=== PATIENT | male | born 1950 | race Caucasian/White ===

== ENCOUNTER → 2019-04-03 | Outpatient (CLI) | payer OTHER ==
[2013-12-04 09:20] VITALS: BP 127/72
[~2019-04-03] MED LIST: ALBU2.5V8 INH; BUSP10TA PO; DIPH25TA64 PO; FINA5TAB4 PO; OXYC-314 PO; TADA20TA PO; TAMS0.4C2 PO
--- NOTE | 2019-04-03 12:26 | NUR ---
PT CANNOT HAVE LABS HERE. MRSA DONE AND COPY OF ORDER GIVEN TO TAKE TO PCP.
== END | disposition home or self-care (01) ==
LOC: SURGPAT 11:11
PROVIDERS: ATTEND Neurological Surgery
DX: Z01.818 Encounter for other preprocedural examination (principal); M47.22 Other spondylosis with radiculopathy, cervical region; Z98.1 Arthrodesis status
CPT/HCPCS: 36415; 87641

== ENCOUNTER 2019-04-13 08:20 | Day surgery (SDC) | payer OTHER ==
--- NOTE | 2019-04-12 17:48 | HP ---
ADMIT DATE: 04/13/2019. PREOPERATIVE HISTORY AND PHYSICAL DATE OF SURGERY: 04/13/2019 HISTORY OF PRESENT ILLNESS: The patient is a pleasant 68-year-old, who has difficulty with neck pain, an intermittent pain which radiates in his right arm along with feelings of numbness and weakness in the right arm. The problem has been present for more than 3 years. I saw him several years ago with similar complaint. He has rested and has limited his activities with no improvement. He says he awakens intermittently at night because of the pain. He has been studied with cervical myelography in the past and more recently with a cervical MRI scan. He did undergo a fusion at C4-C5 and C5-C6 in 2009. There is no problem on the left side. He denies difficulties with balance or gait. He does have a long history of complaints of low back pain. PAST MEDICAL HISTORY: Arthritis, cancer, headaches, head or neck injury, tonsillitis, ulcers, chronic obstructive pulmonary disease, anemia, asthma, osteoporosis, benign prostatic hypertrophy, gastroesophageal reflux disease, hypertension, and low back pain. PAST SURGICAL HISTORY: Right salivary gland in 2011, adenoma removed, anterior cervical discectomy and fusion of C4-C5 and C5-C6 in 04/2010. FAMILY HISTORY: Alzheimer disease, diabetes, coronary artery disease, hypertension, migraine headaches, and spine problems. SOCIAL HISTORY: Retired; ; smokes 2 packs per day and has for 50 years; drinks 6 alcoholic beverages per day. ALLERGIES: No known drug allergies. CURRENT MEDICATIONS: Tamsulosin, Flonase, finasteride, Aleve. REVIEW OF SYSTEMS: A 12-point review of systems was noncontributory except that mentioned above. NEUROSURGERY EXAMINATION: GENERAL APPEARANCE: Alert, pleasant, no acute distress. HEAD: Normocephalic and atraumatic. SKIN: Warm and dry. NECK AND THYROID: Jefi-ak-vwvcwejz tenderness with palpation of posterior cervical region, well-healed anterior incision. MUSCULOSKELETAL: Cervical paraspinal muscle bulk is normal,normal range of motion of the upper extremities bilaterally. EXTREMITIES: No clubbing, cyanosis, or edema. NEUROLOGIC: Alert and oriented x3; normal recent and remote memory; strength 5/5 in bilateral upper and lower extremities. Sensory is intact to light touch in the upper and lower extremities except for decrease in light touch involving the right forearm and hand. Reflexes are trace and symmetric in the upper and lower extremities bilaterally, normal gait. IMAGING: I reviewed a cervical MRI scan. He does have evidence of neural foraminal narrowing on the right at C4-C5 and C5-C6. This does correspond to the right upper extremity. ASSESSMENT/ PLAN: I explained to him again as I did several years ago the problems at C4-C5 and C5-C6 on the right could be associated with his right cervical radicular symptoms. My recommendation is for posterior cervical decompressive surgery at C4-C5 and C5-C6. I discussed with him the surgery and the risks as well as expected postoperative course. He understands and would like to go ahead. We will make the arrangements. BRENT SOLITARIO MD DR: DONTE/wandy JOB#: [id number] / [id number] DANA
[~2019-04-13] VITALS: Ht 172.7 cm; Wt 58.5 kg
[~2019-04-13 08:20] MED LIST changes: +BACITRACIN 50,000 UNIT in IV NORMAL SALINE 1000ML BAG 1,000 ML IRR ONE; +BUPIVACAINE-EPI 0.5%-1:200000 MPF 30 ML VIAL. INJ ONE; +GELATIN SPONGE SIZE 100. ONE; +KETOROLAC 60 MG/2 ML VIAL. ONE; +THROMBIN TOPICAL 20,000 UNIT SPRAY.SYRN KIT TP ONE; +ceFAZolin 2GM PREMIX 2 GM/50 ML BAG IV ONE
[2019-04-13] MEDS ORDERED: AMLO5TAB4 PO (09:21)
[2019-04-13] MEDS ORDERED: ACET500T68 PO (09:25)
[2019-04-13] MEDS ORDERED: IV RINGERS,LACTATED 1000ML 1,000 ML IV SCH ×2 (09:30→13:41)
[2019-04-13] MEDS ORDERED: MIDAZOLAM HCL/PF 2 MG/2 ML VIAL. ONE (09:39)
[2019-04-13] MEDS ORDERED: GLYCOPYRROLATE 1 MG/5 ML VIAL. ONE (09:39)
[2019-04-13] MEDS ORDERED: REMIFENTANIL 2 MG VIAL. IV ONE (09:39)
[2019-04-13] MEDS ORDERED: ROCURONIUM 50 MG/5 ML VIAL. ONE (09:39)
[2019-04-13] MEDS ORDERED: KETOROLAC 30 MG/ML VIAL. ONE (09:40)
[2019-04-13] MEDS ORDERED: DEXAMETHASONE SOD PHOS 20 MG/5 ML VIAL. ONE (09:40)
[2019-04-13] MEDS ORDERED: DESFLURANE > 120 MINUTES IH ONE (09:40)
[2019-04-13] MEDS ORDERED: PHENYLEPHRINE 10 MG/ML VIAL. ONE ×2 (09:40→11:44)
[2019-04-13] MEDS ORDERED: PROPOFOL 20 ML IV ONE (09:40)
[2019-04-13] MEDS ORDERED: PROPOFOL 50 ML IV ONE ×2 (09:40→11:27)
[2019-04-13] MEDS ORDERED: ONDANSETRON PF 4 MG/2 ML VIAL. ONE (09:40)
[2019-04-13] MEDS ORDERED: LIDOCAINE 2% PF 5 ML VIAL. ONE (09:40)
[2019-04-13] MEDS ORDERED: ePHEDrine PF IN SALINE 50 MG/10 ML SYRINGE. IV ONE (11:05)
[2019-04-13] MEDS ORDERED: NEOSTIGMINE METHYLSULFATE 5 MG/5 ML SYRINGE. ONE (12:59)
[2019-04-13] MEDS ORDERED: fentaNYL PF VIAL 100 MCG/2 ML VIAL ONE (13:30)
[2019-04-13] MEDS ORDERED: PROCHLORPERAZINE 10 MG/2 ML VIAL. ONE (13:39)
[2019-04-13] MEDS ORDERED: HYDROmorphone 2 MG/ML VIAL IV PRN (13:45)
[2019-04-13] MEDS ORDERED: MORPHINE SULFATE 2 MG/ML VIAL. IV PRN (13:45)
[2019-04-13] MEDS ORDERED: PROCHLORPERAZINE 10 MG/2 ML VIAL. IV PRN (13:45)
[2019-04-13] MEDS ORDERED: ONDANSETRON PF 4 MG/2 ML VIAL. IV PRN (13:45)
[2019-04-13] MEDS ORDERED: fentaNYL PF VIAL 100 MCG/2 ML VIAL IV PRN ×2 (13:45)
--- NOTE | 2019-04-13 13:47 | OP ---
DATE OF SURGERY: 04/13/2019 PREOPERATIVE DIAGNOSIS: Foraminal narrowing with cervical radiculopathy, C4-5, C5-6, right. POSTOPERATIVE DIAGNOSIS: Foraminal narrowing with cervical radiculopathy, C4-5, C5-6, right. OPERATIONS PERFORMED: Posterior cervical hemilaminotomy, medial facetotomy at C4-5, C5-6, right. The operation was done with multimodality monitoring including EMG, SSEP, motor evoked potentials. Microscopy was also used as well as fluoroscopy. SURGEON: Tye Solitario M.D. [employer] C[employer] TECHNICIAN: LIZETTE Weston, assisted with the surgery. She assisted with the exposure, the microdecompression at both levels as well as closure. OPERATIVE INDICATIONS: The patient is a pleasant 68-year-old man who developed intractable neck and right arm pain, which failed conservative measures. On imaging studies, he was found to have foraminal narrowing at 2 levels and I recommended posterior surgery. I spoke with him about the surgery, the risks, technique, and expected postoperative course and he wished to go ahead. DESCRIPTION OF PROCEDURE: Following general endotracheal anesthesia, the patient was positioned prone on the operating room table in [place] pins. We were careful to avoid any pressure points. His posterior cervical region was then clipped, prepped and draped in standard fashion. Using fluoroscopic guidance, a midline incision was made extending from C4 through C6. I dissected down through subcutaneous tissue and reflected the paraspinal muscles and placed a Beaver micro disc retractor. I brought in the microscope and the remainder of surgery done with microscope using microscopic technique beginning at C4-C5. I burred down a hemilaminotomy and then trimmed laterally along the medial facet and found the foramen, which was very narrow. I drilled the bone above the foramen. I did use fluoroscopic images to help guide my dissection and was able to decompress this region without difficulty. I then went to C5-6 and in a similar fashion, I trimmed the bone and created an exposure. I felt that it was slightly inferior and I worked superiorly trimming the roof of the foramen and visualized the exiting root and followed this out laterally and assured myself that it was well decompressed. Both areas were significant stenotic. There was a small fragment of bone, which was at C5-6 and edging down toward the pedicle of the C5, which I felt was most likely applying pressure on the root as it passed out laterally at this point. This was trimmed away and the region was fully decompressed without any difficulty. Following this, then I irrigated with antibiotic solution. I placed small pieces of Gelfoam in the laminotomy sites and then I closed the wound in layers with absorbable suture after removing the retractor, obtained perfect hemostasis. The skin was closed with skin yariel. The operation went very well and I was quite pleased with the surgery. TYE SOLITARIO MD DR: DONTE/wandy JOB#: [id number] / [id number] DANA
[2019-04-13] MEDS ORDERED: HYDR-2765 PO (14:34)
[2019-04-13] MEDS ORDERED: DOCU-109 PO (14:34)
[2019-04-13] MEDS ORDERED: METH-38 PO (14:34)
--- NOTE | 2019-04-13 14:35 | DISCH ---
DISCHARGE INSTRUCTIONS Condition on Discharge Condition on Discharge: Stable Activity After Discharge Activity Instructions for Disc: Activity as tolerated, Avoid exertion Other activity instructions: no driving for a week Bathing Instructions: Shower-keep dressing dry Lifting Instructions after Dis: No heavy lifting, No pulling or pushing, Do not lift >10 pounds Diet after Discharge Additional Diet Restrictions: resume home diet Wound Incision Care Wound/Incision Care: Ice to area for comfort Other wound/incision instructi: may remove dressing in 48 hours if dry then may shower, no soaking Contacting the after DC Call your doctor for: Concerns you may have Follow-Up Follow up with: Dr. Solitario's nurse in 2 weeks [phone] BRENT SOLITARIO MD Apr 13, 2019 14:35
[2019-04-13 15:00] VITALS: BP 102/60
[2019-04-13] MEDS ORDERED: HYDROcodone/APAP 7.5/325MG 1 TAB TABLET PO ONE (15:45)
--- NOTE | 2019-04-17 23:06 | PATHOLOGY ---
[facility] Accession Number: [id number] . 01 Material submitted: . vertebral column - CERVICAL DECOMPRESSION . 01 Clinical history: . Cervical spondylosis and radiculopathy, cervicalgia . 02 Diagnosis: "Cervical decompression", decompression: - Decalcified bone, periosteum, cartilaginous tissue, fibroadipose connective tissue and skeletal muscle with reactive and degenerative changes. (CLW:mitch; 04/17/2019) QMS 04/17/2019 1041 Local . 02 Electronically signed: . Toma Carey MD, Pathologist NPI- [id number] . 01 Gross description: . Received in formalin labeled "Daniel Woodruff, cervical decompression," are several pieces of glistening, fibrous tissue measuring 2.6 x 0.9 x 0.4 cm in aggregate dimensions, containing small fragments of possible bone. The tissue is filtered and submitted entirely in cassette A1, following decalcification. (TSD; 04/13/2019) TOB/TOB 04/13/2019 2139 Local . 02 Pathologist provided ICD-10: M50.30 . 02 CPT . 459702, [id number] Specimen Comment: A courtesy copy of this report has been sent to [phone] Specimen Comment: [id number] Specimen Comment: Report sent to / DR MOE Performed at: 01 [facility] [address], [place] [id number] MD Jaison Emmanuel MD Phone: [phone] Performed at: 02 [facility] [address], [place] [id number] MD Manolo Beckett MD Phone: [phone]
== END 2019-04-13 16:10 | disposition home or self-care (01) ==
LOC: SURG 08:20
PROVIDERS: ATTEND Neurological Surgery
DX: M48.02 Spinal stenosis, cervical region (principal); M54.12 Radiculopathy, cervical region; M19.90 Unspecified osteoarthritis, unspecified site; J44.9 Chronic obstructive pulmonary disease, unspecified; D64.9 Anemia, unspecified; M81.0 Age-related osteoporosis without current pathological fracture; N40.0 Benign prostatic hyperplasia without lower urinary tract symptoms; K21.9 Gastro-esophageal reflux disease without esophagitis; I10 Essential (primary) hypertension; F17.210 Nicotine dependence, cigarettes, uncomplicated; Z79.899 Other long term (current) drug therapy; Z82.49 Family history of ischemic heart disease and other diseases of the circulatory system; Z81.8 Family history of other mental and behavioral disorders; Z98.890 Other specified postprocedural states
CPT/HCPCS: 63045; 63048; 76000; 97116; 97162; 97530; A7015; J0171; J0696; J0780; J1100; J1885; J2001; J2250; J2405; J2704; J2710; J3010; J3490; J7030

== ENCOUNTER 2019-06-12 08:32 | Outpatient (CLI) | payer OTHER ==
[2019-06-12] VITALS (8 sets, daily range): BP systolic 107–150; BP diastolic 57–86
[~2019-06-12] VITALS: Ht 172.7 cm; Wt 59.0 kg
[~2019-06-12 08:32] MED LIST changes: +ACET500T68 PO; +AMLO5TAB4 PO; -BACITRACIN 50,000 UNIT in IV NORMAL SALINE 1000ML BAG 1,000 ML IRR ONE; -BUPIVACAINE-EPI 0.5%-1:200000 MPF 30 ML VIAL. INJ ONE; +DOCU-109 PO; -GELATIN SPONGE SIZE 100. ONE; +HYDR-2765 PO; -KETOROLAC 60 MG/2 ML VIAL. ONE; +METH-38 PO; -THROMBIN TOPICAL 20,000 UNIT SPRAY.SYRN KIT TP ONE; -ceFAZolin 2GM PREMIX 2 GM/50 ML BAG IV ONE
[2019-06-12 09:15] LABS: BASO # 0.1 x10^3/uL (0.0-0.2); BASO % 1 % (0-3); EOS # 0.5 x10^3/uL (0.0-0.7); EOS % 7 % (0-3); HEMATOCRIT 39.1 % (39.0-53.0); LYMPH # 2.1 x10^3/uL (1.0-4.8); LYMPH % 28 % (24-48); MEAN CORPUSCULAR HEMOGLOBIN 31 pg (25-35); MEAN CORPUSCULAR HGB CONC 33 g/dL (31-37); MEAN CORPUSCULAR VOLUME 92 fL (79-100); MONO % 13 % (0-9); NEUT # 3.9 x10^3/uL (1.8-7.7); NEUT % 51 % (31-73); PLATELET COUNT 334 x10^3/uL (140-400); RED BLOOD COUNT 4.26 x10^6/uL (4.30-5.70); RED CELL DISTRIBUTION WIDTH 14.4 % (11.5-14.5); WHITE BLOOD COUNT 7.6 x10^3/uL (4.0-11.0)
[2019-06-12 09:29] LABS: PROTHROMBIN TIME PATIENT 12.9 SEC (11.7-14.0)
[2019-06-12] MEDS ORDERED: fentaNYL PF VIAL 100 MCG/2 ML VIAL ONE (09:34)
[2019-06-12] MEDS ORDERED: MIDAZOLAM HCL/PF 2 MG/2 ML VIAL. ONE (09:34)
[2019-06-12] MEDS ORDERED: FLUT10.6 IH (09:38)
[2019-06-12] MEDS ORDERED: LIDOCAINE WITH 8.4% SOD BICARB 3 ML DISP.SYRIN. ONE (09:42)
[2019-06-12] MEDS ORDERED: MIDAZOLAM HCL/PF 2 MG/2 ML VIAL. IV ONE (10:15)
[2019-06-12] MEDS ORDERED: LIDOCAINE WITH 8.4% SOD BICARB 3 ML DISP.SYRIN. IJ ONE (10:15)
[2019-06-12] MEDS ORDERED: fentaNYL PF VIAL 100 MCG/2 ML VIAL IV ONE (10:15)
--- NOTE | 2019-06-21 15:07 | PATHOLOGY ---
[facility] Accession Number: [id number] . 01 Material submitted: . PART A: bone - BONE MARROW BIOPSY PART B: bone - BONE MARROW CLOT PART C: bone - BONE MARROW ASPIRATE SLIDES PART D: bone - PERIPHERAL BLOOD SMEARS PART E: bone - BONE MARROW FLOW . 01 Clinical history: . High eosinophils . 02 Diagnosis: Peripheral smear: - Normal WBC count with borderline mild absolute eosinophilia and mild absolute monocytosis. . Bone marrow, aspirate smears, clot section, and core biopsy: - Variable normocellular to mildly hypocellular marrow showing trilineage hematopoiesis, no significant dyspoiesis, and focal mild marrow eosinophilia. - Adequate reticuloendothelial iron stores. LBQ 06/21/2019 1500 Local . 02 Comment: The peripheral smear shows a normal WBC count with a borderline mild absolute eosinophilia and mild absolute monocytosis. The bone marrow varies from normocellular to mildly hypocellular. It shows trilineage hematopoiesis, no significant dyspoiesis, and foci of mild marrow eosinophilia. Bone marrow submitted for flow cytometric analysis shows no immunophenotypic evidence of a lymphoproliferative disorder, acute leukemia, increase in blasts, or plasma cell neoplasm. Bone marrow submitted for cytogenetic analysis shows a normal male karyotype in all cells analyzed. There is no morphologic evidence of a myeloproliferative neoplasm. Would rule out causes of a reactive eosinophilia and reactive monocytosis. (JPM/db; 06/20/2019) . Special stains performed: Iron stains on B1 and C1, retic stain on A1 . 02 Electronically signed: . Manolo Beckett MD, Pathologist NPI- [id number] . 01 Gross description: . A. The specimen is received in formalin, labeled "Daniel Woodruff, BM BX" and consists of a bone core measuring 1.4 cm in length and 0.2 cm in diameter which is entirely submitted in A1 following the calcification. . B. The specimen is received in formalin, labeled "Daniel Woodruff, BM ASP clot" and consists of a biopsy bag containing blood clot measuring 2.6 x 1.2 x 0.2 cm which is entirely submitted in B1. (SDY; 06/12/2019) SYU/SYU 06/12/2019 1450 Local . 02 Microscopic: . Laboratory Data: The WBC count is 7.6 K/CMM, and the WBC differential reveals 51% neutrophils, 28% lymphs, 13% monos, 7% eos, and 1% baso. The RBC count is 4.26 M/CMM, hemoglobin 13.0 G/DL, hematocrit 39.1%, MCV 92 FL, MCH 31 PG, MCHC 33 G/DL, and the RDW is 14.4%. The platelet count is 334 K/CMM. . Peripheral Smear: The WBC count is normal. There is a borderline mild absolute monocytosis and mild absolute eosinophilia. The WBC differential reveals a predominance of segmented neutrophils, with smaller populations of lymphocytes, monocytes, and eosinophils noted. Neutrophils do not show dysplastic changes. There is no significant neutrophilic left shift. There are no circulating blasts. There is no leukoerythroblastic reaction. Monocytes and eosinophils morphologically appear mature. Red blood cells appear normocytic and normochromic and show no significant anisopoikilocytosis. Platelets appear normal in number and morphology with an occasional large platelet noted. . Aspirate Smears: Two Torres's-stained and one iron-stained aspirate smears are examined. The smears contain multiple marrow particles which do appear somewhat hypocellular. Erythroid maturation appears normoblastic. There are no megaloblastic or overt dysplastic changes. Granulopoiesis qualitatively appears normal. There is no significant left shift or dysplastic changes. There is no increase of blasts. There are a few admixed eosinophils with no significant increase of eosinophils identified. There are a few megakaryocytes present which are of variable ploidy. There are a few admixed plasma cells with no significant increase of plasma cells noted. There is no increase of lymphocytes. There are no cells foreign to the marrow. The iron stain reveals adequate reticuloendothelial iron stores. No ringed sideroblasts are identified. . Bone Marrow Biopsy and Clot Section: Sections of the bone marrow biopsy reveal a segment of bone marrow showing focal aspiration artifact. Preserved areas of the biopsy are on the order of 10-20% cellular. The clot section contains multiple marrow particles which range between 10% and 30-40% cellular. There is trilineage hematopoiesis. There is a good admixture of erythroid and granulocytic precursors, which are present in varying stages of maturation. There are no increase of blasts. Megakaryocytes appear adequate and are of variable ploidy. There are foci of mild marrow eosinophilia. These foci show up to approximately 20% eosinophils. There is no increase of plasma cells. There are no abnormal lymphoid aggregates, granulomas, or cells foreign to the marrow. A reticulin stain obtained on the biopsy shows a focal mild increase of reticulin fibers. An iron stain obtained on the clot section shows adequate to focally mildly increased reticuloendothelial iron stores. No ringed sideroblasts are identified. (JPM/db; 06/20/2019) . Special Studies: Bone marrow submitted for flow cytometric analysis has a viability of 96.3%. Granulocytes comprise 73.0% of total cells and show phenotypic evidence of maturation. The preponderance of mature myeloid cells raises the possibility of significant hemodilution of the aspirate sample. Monocytes comprise 7.6% of total cells and show phenotypic evidence of maturation. CD45 dim, CD34 positive cells comprise 0.6% of total cells. Plasma cells comprise 0.1% of total cells. Lymphocytes comprise 17.2% of total cells. T-cells comprise 70% of lymphoid cells and show a CD4/CD8 ratio of 3.9. NK-cells comprise 13% of lymphoid cells. Mature B-cells comprise 14% of lymphoid cells and are polyclonal with a kappa:lambda ratio of 2.1. . Bone marrow submitted for cytogenetic analysis shows a normal male karyotype in all cells analyzed. (JPM/db; 06/19/2019) . 02 Pathologist provided ICD-10: D72.821, D75.9 . 02 CPT . 577892, 064454, 776940, 909465, 328501, 134344, 935643, 209519 Specimen Comment: A courtesy copy of this report has been sent to [phone] Specimen Comment: [id number], Specimen Comment: Report sent to ,DR PAREDES / DR MOE Performed at: [address] [place] [address] [address]vd [address], [place], [place] [id number] MD Jaison Emmanuel MD Phone: [phone] Performed at: [address] [id number] MD Manolo Beckett MD Phone: [phone]
--- NOTE | 2019-06-26 11:02 | RAD ---
CT-guided bone marrow biopsy. 06/26/2019 8:58 AM Indication: HISTIOCYTOSIS Discussion: The risks and benefits of the procedure, including but not limited to, bleeding and infection were discussed patient. Informed consent was obtained. The patient was brought to the CT scanner and placed in the prone position. A timeout procedure was performed. Billet Straightener CT imaging of the pelvis demonstrated left ilium amenable to bone marrow biopsy. The overlying soft tissues were prepped and draped using maximum sterile barrier technique. 1% lidocaine without epinephrine was administered for local anesthesia. Under intermittent CT guidance, an OncControl needle was advanced into the bone marrow of the left iliac crest. 2 Aspirates and 1 core biopsy samples were obtained. Samples were delivered to pathology was present at the time of procedure. The needle was removed and manual pressure held to achieve hemostasis. No immediate complications were identified. The procedure was performed under conscious sedation including continuous cardiopulmonary monitoring via dedicated sedation nurse. Sedation time: 20 minutes Impression: Successful CT-guided bone marrow biopsy of the left iliac crest . PQRS Compliance Statement: One or more of the following individualized dose reduction techniques were utilized for this examination: 1. Automated exposure control 2. Adjustment of the mA and/or kV according to patient size 3. Use of iterative reconstruction technique
== END 2019-06-12 11:45 | disposition home or self-care (01) ==
LOC: INTRAD 08:32
PROVIDERS: ATTEND Internal Medicine Hematology & Oncology
DX: M89.8X8 Other specified disorders of bone, other site (principal); D76.3 Other histiocytosis syndromes; M19.90 Unspecified osteoarthritis, unspecified site; I10 Essential (primary) hypertension; K21.9 Gastro-esophageal reflux disease without esophagitis; N40.0 Benign prostatic hyperplasia without lower urinary tract symptoms; J44.9 Chronic obstructive pulmonary disease, unspecified; Z79.01 Long term (current) use of anticoagulants
CPT/HCPCS: 36415; 38222; 77012; 85025; 85610; 88184; 88185; 88237; 88305; 88311; 88313; J2250; J3010; 99152

== ENCOUNTER → 2019-06-13 | Outpatient (CLI) | payer OTHER ==
[2019-06-12 11:28] VITALS: BP 107/57
[~2019-06-13] MED LIST changes: +FLUT10.6 IH; +GADOTERATE 7.5 MMOL/15ML VIAL. IVP ONE; +IOHEXOL 240 MG/ML 50ML VIAL. PO ONE; +IOHEXOL 300 MG/ML 100ML VIAL. IV ONE
--- NOTE | 2019-06-13 16:20 | RAD ---
MRI of the Brain without and with Contrast 06/13/2019 Clinical History: Histiocytosis seen on recent bone marrow biopsy. Technique: Unenhanced T1-weighted sagittal and axial and FLAIR, T2-weighted, gradient echo and diffusion-weighted axial images of the brain were obtained. After the intravenous administration of 12 cc of DOTAREM, enhanced T1-weighted axial, sagittal and coronal images of the brain were obtained. Findings: No previous imaging studies are available for comparison. There is generalized parenchymal atrophy. Patchy and multiple small focal areas of abnormally increased signal intensity are seen within the periventricular and subcortical white matter of both cerebral hemispheres on the FLAIR and T2-weighted images consistent with areas of mild small vessel ischemic disease. No acute parenchymal abnormality is seen. No abnormal area of contrast enhancement is noted. No extra-axial fluid collection is seen. There is no MRI evidence of acute ischemia/infarction. Mild mucosal thickening is seen throughout the paranasal sinuses. There are minimal bilateral mastoid effusions. Normal flow voids are seen within the major vascular structures surrounding the brain parenchyma. Impression: No acute parenchymal abnormality is seen. Electronically signed by: Alden Gamez MD (06/13/2019 4:17 PM) [facility]
--- NOTE | 2019-06-13 17:37 | RAD ---
Examination: CT CHEST ABD PELVIS W/CONTRAST History: Histiocytosis. Lytic bone lesions on x-ray exam Comparison/Correlation: None Findings: Axial images of chest, abdomen, and pelvis were obtained following IV contrast. Sagittal and coronal reformatted images were provided. Coronary arterial calcification noted. Extensive emphysematous involvement of the lung duarte noted. No infiltrate . No pneumothorax. No suspicious pulmonary nodule or mass lesion. Pretracheal nonenlarged lymph node measuring up to 0.5 cm in short axis diameter is present. No enlarged thoracic lymph nodes. No pleural or pericardial effusion. There are multiple low-attenuation lesions involving the liver. These have a density mildly greater than simple fluid with Hounsfield units of between 20-28. These lesions are well-circumscribed. Some of them are too small for characterization. Largest of these is at the junction of the right and left hepatic lobes measuring 1.9 cm x 1.5 cm. Gallbladder fossa is unremarkable. Calcified granulomas involving the spleen. Left renal superior pole 0.4 cm diameter calculus is present. Large quantity of stool involving the proximal hemicolon. Appendix is unremarkable. No inflammatory change about the cecum. Urinary bladder is unremarkable. No ascites. Trace pelvic free fluid noted. No enlarged abdominal or pelvic lymph nodes. Degenerative space narrowing at the lower cervical spine noted. Degenerative disc space throughout the entire lumbar spine is seen and of moderate to severe extent. Endplate sclerosis especially L5-S1. Minimal retrolisthesis of L1 in relation to L2 and in relation to L3. No significant malalignment. Central disc protrusion at L5-S1. There is no bony destructive lesion identified. Impression: Multiple indeterminate hepatic lesions. MRI of the liver without with contrast is recommended for more complete characterization if stability is unknown. No suspicious bony lesions. Advanced degenerative changes throughout the lumbar spine. Nonobstructive left renal superior pole calyceal calculus. PQRS Compliance Statement: One or more of the following individualized dose reduction techniques were utilized for this examination: 1. Automated exposure control 2. Adjustment of the mA and/or kV according to patient size 3. Use of iterative reconstruction technique Electronically signed by: Josué Erwin MD (06/13/2019 5:34 PM) [facility]
== END | disposition home or self-care (01) ==
LOC: MRI 13:00
PROVIDERS: ATTEND Internal Medicine Hematology & Oncology
DX: G31.89 Other specified degenerative diseases of nervous system (principal); J34.89 Other specified disorders of nose and nasal sinuses; J43.9 Emphysema, unspecified; N20.0 Calculus of kidney; M51.36 Other intervertebral disc degeneration, lumbar region; M51.27 Other intervertebral disc displacement, lumbosacral region; D76.3 Other histiocytosis syndromes
CPT/HCPCS: 70553; 71260; 74177; A9575; Q9966; Q9967

== ENCOUNTER → 2019-07-04 | Outpatient (CLI) | payer MEDICARE, OTHER ==
[2019-06-12 11:28] VITALS: BP 107/57
[~2019-07-04] MED LIST changes: -IOHEXOL 240 MG/ML 50ML VIAL. PO ONE; -IOHEXOL 300 MG/ML 100ML VIAL. IV ONE
--- NOTE | 2019-07-05 08:36 | KCIC ---
ABDOMEN WO/W CONTRAST Clinical Indication: Hepatic lesions on CT. Histiocytosis. Comparison: CT chest abdomen and pelvis with contrast, June 13, 2019. TECHNIQUE: Routine multiplanar multiple pulse sequence images of the abdomen are obtained before and after 10 cc of Dotarem IV contrast. Findings: There are multiple simple hepatic cysts. These account for the hypodensities noted on CT. The largest cyst is in segment 8 and measures 2 cm. There is increased signal in the liver on the out of phase images in comparison to the in phase suggesting iron deposition. There is relatively decreased T2 signal in the liver. There is no abnormal enhancement in the liver. No diffusion-weighted signal abnormality is identified. The spleen size is normal. No hydronephrosis. There is a tiny cyst in the upper pole of the left kidney. Gallbladder, pancreas, and adrenal glands are normal. Biliary tree and pancreatic duct are normal caliber. No evidence of bowel obstruction. Degenerative spondylosis of the lumbar spine. IMPRESSION: 1. There are multiple hepatic cysts. 2. Signal characteristics of the liver suggest iron deposition. Electronically signed by: Carlos Marino MD (07/05/2019 8:33 AM) [id number]
== END | disposition home or self-care (01) ==
LOC: KCIC MRI 12:52
PROVIDERS: ATTEND Internal Medicine Hematology & Oncology
DX: K76.89 Other specified diseases of liver (principal); D76.3 Other histiocytosis syndromes; M47.816 Spondylosis without myelopathy or radiculopathy, lumbar region
CPT/HCPCS: 74183; A9575

== ENCOUNTER → 2019-08-08 | Outpatient (CLI) | payer MEDICARE ==
[2019-06-12 11:28] VITALS: BP 107/57
[~2019-08-08] MED LIST changes: -GADOTERATE 7.5 MMOL/15ML VIAL. IVP ONE
--- NOTE | 2019-08-08 16:21 | RAD ---
MRI Lumbar Spine without contrast History: Lumbar spondylosis Technique: Multiplanar, multi sequential noncontrast MR imaging was performed of the lumbar spine. Comparison: December 08, 2011 Findings: There is some motion degradation. Lumbar vertebral body stature is overall maintained. There is fairly advanced degenerative disc disease variably throughout the lumbar spine, progressed in the interval L1 L2-3 and L4-5. There is multilevel vertebral endplate edema throughout the lumbar spine greatest at L5-S1, in part present previously although also progressed most notably at L4-5 and posteriorly at L1-2 and L2-3. There is no significant fluid signal intensity in the intervertebral disc spaces and there is no significant paraspinous soft tissue edema. There is T2 and STIR hyperintense lesion of the left superior L2 vertebral body about 1.2 cm CC as seen previously, also another focus of the more central L2 vertebral body about 0.9 cm CC also similar. Minimal posterior subluxation of L2 relative L3 is greater, also minimal posterior subluxation L1 relative L2. Conus terminates at T12-L1. There is distention of the visualized urinary bladder. There are some T2 hyperintense foci of the visualized liver otherwise which cannot be further characterized on this exam, cysts seen on previous abdomen MRI abdomen July 04, 2019. L1-L2: There is bulge superimposed on the minimally posteriorly subluxed L1 vertebral body margin, mild indentation upon the ventral thecal sac greater in the far right lateral recess without significant spinal stenosis. Neural foramina are overall adequate. L2-L3: There is disc osteophyte complex and bulge superimposed on the minimally posteriorly subluxed L2 vertebral body margin. There is again posterior annular tear. There is very mild narrowing of the far right lateral recess. Neural foramina are adequate. L3-L4: There is again disc osteophyte complex and bulge. There is mild buckling of the ligamentum flavum flavum and [id number] facet degenerative change. There is mild narrowing of the far lateral recesses bilaterally slightly greater most notable on the left. Left neural foramen is overall adequate, disc osteophyte complex in the inferior left neural foramen and left extraforaminal region without significant impingement of the exiting left L3 nerve root. There is mild narrowing of the right neural foramen by disc osteophyte complex and also posteriorly by facet. L4-L5: There is again disc osteophyte complex and bulge. There is mild buckling of the ligamentum flavum flavum and [id number] facet degenerative change. There is mild narrowing of the far lateral recesses bilaterally, left greater than right. There is [id number] narrowing of the right neural foramen greater distally, inferior narrowing by disc osteophyte complex and bulge, contact undersurface exiting right L4 nerve root in the distal neural foramen. There is also [id number] narrowing of the left neural foramen by disc osteophyte complex and facet. L5-S1: There is disc osteophyte complex and bulge, contact of the ventral surface descending left S1 nerve root and near the descending right S1 nerve root without displacement. There is mild narrowing of the far left lateral recess. There is mild bilateral facet degenerative change greater on the left. Disc osteophyte complex and facet degenerative change contributes to fairly severe left and moderate right neural foramina compromise, contact of the exiting L5 nerve roots bilaterally left greater than right by disc osteophyte complex. Impression: 1. There is variable mild lateral recess stenosis as described such as bilaterally left greater than right at L4-5 and L3-4 and on the left at L5-S1. 2. There is multilevel lumbar neural foramina compromise, more significant narrowing on the left at L5-S1, to a somewhat lesser degree on the right at L5-S1 and bilaterally at L4-5. 3. There is multilevel variable fairly advanced lumbar degenerative disc disease, progressed since the 2012 exam. Multilevel endplate edema is likely reactive/degenerative in etiology as variably present previously, no significant fluid in the intervertebral disc spaces and no significant paraspinous soft tissue edema. 4. Urinary bladder is likely distended, not fully included. Electronically signed by: Adalberto Reed MD (08/08/2019 4:18 PM) [id number]
== END | disposition home or self-care (01) ==
LOC: MRI 14:13
PROVIDERS: ATTEND Neurological Surgery
DX: M48.07 Spinal stenosis, lumbosacral region (principal); M51.36 Other intervertebral disc degeneration, lumbar region; M43.5X6 Other recurrent vertebral dislocation, lumbar region; M47.816 Spondylosis without myelopathy or radiculopathy, lumbar region; M25.78 Osteophyte, vertebrae; N32.89 Other specified disorders of bladder; M51.26 Other intervertebral disc displacement, lumbar region
CPT/HCPCS: 72148